=== PATIENT | female | born 1965 | race Caucasian/White ===

== ENCOUNTER 2021-02-24 13:22 | Emergency (ER) | payer OTHER, SELFPAY ==
--- NOTE | 2021-02-24 13:29 | ED.GENADULT ---
HPI - General Adult General Chief complaint: Urogenital-Female Stated complaint: Urinary Problem/Right side pain Time Seen by Provider: 02/24/21 13:29 Source: patient Mode of arrival: ambulatory Limitations: no limitations History of Present Illness HPI narrative: 55-year-old female patient presents to the [facility] with complaints of right-sided flank pain that started couple of hours ago today. Patient states she has also noticed that she has had increase in urination but denies any pain with urination. Denies any low back pain. Denies any fevers, body aches or chills. Patient states all of her symptoms just started today. Related Data Home Medications Medication Instructions Recorded Confirmed gabapentin 400 mg PO BID 02/24/21 02/24/21 tramadol 02/24/21 Allergies Allergy/AdvReac Type Severity Reaction Status Date / Time No Known Allergies Allergy Verified 02/24/21 13:42 Review of Systems Review of Systems: CONSTITUTIONAL: Denies fever, chills, or sweats. EYES: Denies visual changes, redness, or discharge. ENT: Denies rhinorrhea, congestion, sore throat, or otalgia. CARDIOVASCULAR: Denies chest pain, palpitations, or edema. RESPIRATORY: Denies cough or dyspnea. GASTROINTESTINAL: Denies abdominal pain, nausea, vomiting, or diarrhea. Positive right flank pain GENITOURINARY: Denies dysuria or hematuria. Positive increase in frequency SKIN: Denies rash or itching. MUSCULOSKELETAL: Denies back pain, joint pain, or myalgia. NEUROLOGIC: Denies headache, numbness, or weakness. PSYCHIATRIC: Denies anxiety or depression. PMFSH Comments At the time of my signature I agree with nursing past medical history, surgical, social, and family history. There is no relevant family history pertinent to the presenting complaint. Exam Narrative: GENERAL: Well-appearing, well-nourished, and in no acute distress. HEAD: Normocephalic, atraumatic. EYES: PERRLA and EOMI. ENT: Nares clear, no rhinorrhea or epistaxis. Mucous membranes moist. NECK: Supple. No lymphadenopathy CHEST: Clear to auscultation. No respiratory distress. HEART: Regular rate and rhythm. No murmur heard. Normal peripheral pulses. ABDOMEN: Soft, nontender, nondistended, normal active bowel sounds. No CVA tenderness on percussion. EXTREMITIES: Normal range of motion. No edema. SKIN: Warm, dry, no rash. NEURO: No focal deficits. Alert and oriented x3. Course Vital Signs Vital signs: Vital Signs Temperature 36.9 C 02/24/21 13:43 Pulse Rate 76 02/24/21 13:43 Respiratory Rate 16 02/24/21 13:43 Blood Pressure 119/75 02/24/21 13:43 Pulse Oximetry 98 02/24/21 13:43 Temperature 36.9 C 02/24/21 13:45 Pulse Rate 76 02/24/21 13:45 Respiratory Rate 16 02/24/21 13:45 Blood Pressure 119/75 02/24/21 13:45 Pulse Oximetry 98 02/24/21 13:45 Vital signs reviewed Medical Decision Making Differential Diagnosis Differential Diagnosis: Differential diagnosis: Uncomplicated lower UTI, uncomplicated UTI, pyelonephritis Discussed with patient that there is nothing obvious noted in her urine that would be suggestive of UTI at this time we will go ahead and send her urine off to the lab for culture and if it does come back showing that there is some bacteria growing we will call her in an antibiotic at that time. Discussed with patient that meanwhile I would encourage heating pad to the right flank Tylenol ibuprofen for pain see if this improves otherwise if it continues to worsen she would need to follow-up with her primary doctor for possible ultrasound or CT to rule out kidney stone. Patient verbalized understanding denies any other questions or concerns at this time. Vital Signs Vital Signs: Vital Signs Temperature 36.9 C 02/24/21 13:43 Pulse Rate 76 02/24/21 13:43 Respiratory Rate 16 02/24/21 13:43 Blood Pressure 119/75 02/24/21 13:43 Pulse Oximetry 98 02/24/21 13:43 Temperature 36.9 C 02/24/21 13:45 Pulse Rate
[2021-02-24 13:43] VITALS: BP 119/75; PULSE 76; RESP 16; TEMP 36.9; O2SAT 98
[2021-02-24 13:45] VITALS: BP 119/75; PULSE 76; RESP 16; TEMP 36.9; O2SAT 98
== END 2021-02-24 14:06 | disposition home or self-care (01) ==
PROVIDERS: Emergency Provider Nurse Practitioner Family; PCP Internal Medicine
DX: R10.9 Unspecified abdominal pain (principal)
CPT/HCPCS: 81003; 87086; 99213; G0463